=== PATIENT | male | born 1950 | race American Indian/Alaskan Native ===

== ENCOUNTER 2017-07-09 11:43 | Outpatient (CLI) | payer OTHER, MEDICARE ==
[2017-07-09 13:05] LABS: Blood Urea Nitrogen 11 mg/dL (9-20)
--- NOTE | 2017-07-09 15:21 | Cat Scan Report ---
CT ABDOMEN PELVIS WITH CONTRAST: HISTORY: Enlarged prostate gland, lower urinary tract symptoms. COMPARISON: none. TECHNIQUE: Helical CT in 1.25mm intervals following IV contrast. Sagittal and coronal reconstructions. FINDINGS: Lung bases: normal. Liver: There are multiple small liver cysts measuring up to 1 cm. No suspicious liver mass. Biliary system: normal. Pancreas: normal. Spleen: normal. Kidneys/ureters/bladder: 4.5 cm simple cyst at the inferior pole of the right kidney is noted. The left kidney is unremarkable. The ureters and bladder are within normal limits. There is moderate enlargement of the prostate gland measuring 6.3 cm in diameter. Adrenal glands: normal. Aorta: normal. Intestines: normal. Appendix: normal. Pelvic viscera: normal. Musculoskeletal: Moderate lumbar spondylosis. No evidence for fracture or suspicious bony lesion. IMPRESSION: No acute abdominal process. Multiple tiny liver cysts. 4 cm right renal cyst. Moderate enlargement of the prostate gland. Lumbar spondylosis.
== END 2017-07-09 11:44 | disposition home or self-care (01) ==
LOC: CT 11:43
PROVIDERS: ATTEND Urology
DX: N40.1 Benign prostatic hyperplasia with lower urinary tract symptoms (principal); N28.1 Cyst of kidney, acquired; K76.89 Other specified diseases of liver; N39.498 Other specified urinary incontinence; M47.896 Other spondylosis, lumbar region
CPT/HCPCS: 36415; 74177; 82565; 84520; Q9967

== ENCOUNTER 2017-11-13 13:10 | Outpatient (CLI) | payer OTHER, MEDICARE ==
[2017-11-13 13:34] LABS: Basophils % (Auto) 0.6 % (0.0-1.8); Eosinophils # (Auto) 0.2 K/mm3 (0.0-0.4); Eosinophils % (Auto) 3.5 % (0.0-4.3); Hematocrit 43.5 % (35.5-45.6); Hemoglobin 14.7 gm/dl (11.8-15.2); Lymphocytes % (Auto) 29.5 % (13.4-35.0); Mean Corpuscular HGB Conc 34 % (32-34); Mean Corpuscular Hemoglobin 29 pg (28-32); Mean Corpuscular Volume 86 fl (84-94); Monocytes # (Auto) 0.7 K/mm3 (0.0-0.8); Monocytes % (Auto) 10.5 % (0.0-7.3); Platelet Count 182 K/mm3 (140-440); Red Blood Count 5.07 M/mm3 (3.65-5.03); Red Cell Distribution Width 15.9 % (13.2-15.2)
[2017-11-13 13:54] LABS: Erythrocyte Sedimentation Rate 6 mm/Hr (0-20)
== END 2017-11-13 13:11 | disposition home or self-care (01) ==
LOC: LAB 13:10
DX: Z47.1 Aftercare following joint replacement surgery (principal); R79.89 Other specified abnormal findings of blood chemistry
CPT/HCPCS: 36415; 85025; 85652; 86140

== ENCOUNTER 2018-03-18 10:51 | Outpatient (CLI) | payer OTHER, MEDICARE ==
--- NOTE | 2018-03-19 12:21 | Nuclear Medicine Report ---
TRIPLE PHASE BONE SCAN History: Right knee prosthesis, right knee pain Comparison: None. Technique: 25 mCi technetium 99m MDP was administered intravenously. Blood flow, blood pool and delayed imaging of the lower extremities was performed. Findings: The perfusion images demonstrate relatively symmetric perfusion to both lower extremities. The blood pool images demonstrate mild increased uptake surrounding the femoral and tibial components of the right knee replacement. The delayed images also demonstrate mild increased radiotracer uptake surrounding the femoral and tibial components of the right knee replacement. Photopenic defect in the left knee is noted and consistent with a left knee prosthesis. No abnormal uptake surrounding the left knee prosthesis IMPRESSION: There is increased uptake surrounding the right knee prosthesis which could represent loosening or infection. Please note that this can be a normal finding within one year of surgery. Please correlate with the patient's clinical history and presentation.
== END 2018-03-18 10:52 | disposition home or self-care (01) ==
LOC: NM 10:51
PROVIDERS: ATTEND Orthopaedic Surgery
DX: Z47.1 Aftercare following joint replacement surgery (principal); Z96.651 Presence of right artificial knee joint
CPT/HCPCS: 78315; A9503

== ENCOUNTER 2018-11-21 15:15 | Outpatient (CLI) | payer MEDICARE, OTHER ==
[2018-11-21 15:57] LABS: Basophils % (Auto) 0.6 % (0.0-1.8); Eosinophils # (Auto) 0.2 K/mm3 (0.0-0.4); Eosinophils % (Auto) 2.4 % (0.0-4.3); Hematocrit 42.3 % (35.5-45.6); Hemoglobin 14.1 gm/dl (11.8-15.2); Lymphocytes # (Auto) 2.1 K/mm3 (1.2-5.4); Lymphocytes % (Auto) 27.7 % (13.4-35.0); Mean Corpuscular HGB Conc 33 % (32-34); Mean Corpuscular Volume 90 fl (84-94); Monocytes # (Auto) 0.6 K/mm3 (0.0-0.8); Monocytes % (Auto) 8.2 % (0.0-7.3); Platelet Count 185 K/mm3 (140-440); Red Blood Count 4.68 M/mm3 (3.65-5.03); Red Cell Distribution Width 14.5 % (13.2-15.2)
== END 2018-11-21 15:16 | disposition home or self-care (01) ==
LOC: LAB 15:15
PROVIDERS: ATTEND Physical Medicine & Rehabilitation
DX: Z00.8 Encounter for other general examination (principal)
CPT/HCPCS: 36415; 85025

== ENCOUNTER 2018-11-27 11:43 | Outpatient (CLI) | payer OTHER ==
[2018-11-27 12:33] LABS: Hematocrit 42.5 % (35.5-45.6); Hemoglobin 14.6 gm/dl (11.8-15.2); Mean Corpuscular HGB Conc 34 % (32-34); Mean Corpuscular Volume 88 fl (84-94); Platelet Count 200 K/mm3 (140-440); Red Blood Count 4.81 M/mm3 (3.65-5.03); Red Cell Distribution Width 14.4 % (13.2-15.2)
[2018-11-27 13:02] LABS: Albumin 4.1 g/dL (3.9-5); BUN/Creatinine Ratio 11; Blood Urea Nitrogen 12 mg/dL (9-20); Calcium 8.8 mg/dL (8.4-10.2); Hemolysis Index 151; LDL Cholesterol,Direct 136 mg/dL (50-130)
[2018-11-27 13:34] LABS: Alanine Aminotransferase 30 units/L (7-56)
[2018-11-27 14:02] LABS: Chol/HDL Ratio 4.13 %; HDL Cholesterol 43 mg/dL (40-59)
[2018-12-02 12:47] LABS: Vitamin D, 25-OH, D2 <4 ng/mL
== END 2018-11-27 11:44 | disposition home or self-care (01) ==
LOC: LAB 11:43
DX: Z00.8 Encounter for other general examination (principal)
CPT/HCPCS: 36415; 80053; 80061; 82306; 82533; 82607; 82627; 82747; 84402; 85027